=== PATIENT | male | born 1995 | race Two or more races ===

== ENCOUNTER 2020-08-12 15:11 | Emergency (ER) | payer OTHER ==
[~2020-08-12] VITALS: Ht 177.8 cm; Wt 63.0 kg
[2020-08-12] MEDS ORDERED: HALOPERIDOL LACTATE 5MG/ML VIAL IM STA (15:37)
[2020-08-12] MEDS ORDERED: LORAZEPAM 2MG/ML CPJ IM STA (15:37)
[2020-08-12] MEDS ORDERED: SODIUM CHLORIDE 0.9% 1,000 ML IV ONE (15:45)
[2020-08-12 15:58] LABS: BASOPHILS % 0.5 % (0.0-2.0); EOSINOPHILS % 0.8 % (0.0-5.0); HEMATOCRIT. 46.7 % (42.0-52.0); HEMOGLOBIN. 15.6 g/dL (14.0-18.0); LYMPHOCYTES % 19.4 % (20.0-50.0); MEAN CORPUSCULAR HEMOGLOBIN 30.4 pg (28.0-32.0); MEAN PLATELET VOLUME 8.6 fl (7.4-10.4); MONOCYTES % 10.2 % (2.0-8.0); NEUTROPHILS % 69.1 % (40.0-76.0); PLATELET 246 x1000/uL (130-400); RED BLOOD CELL COUNT 5.13 mill/uL (4.7-6.1)
[2020-08-12 16:05] LABS: CHLORIDE 102 mEq/L (98-107)
[2020-08-12 16:09] LABS: ETHANOL BLOOD < 10 mg/dL
[2020-08-12 16:24] LABS: CREATINE KINASE 2105 IU/L (39-308)
[2020-08-12 17:09] LABS: CLARITY URINE CLEAR (CLEAR); COLOR URINE YELLOW (YELLOW); KETONES URINE 3+ (NEGATIVE); LEUKOCYTE ESTERASE URINE 1+ (NEGATIVE); NITRITE URINE NEGATIVE (NEGATIVE); OCCULT BLOOD URINE 2+ (NEGATIVE); PH URINE 5.5 (4.5-8.0); PROTEIN URINE 1+ (NEGATIVE); SPECIFIC GRAVITY URINE 1.032 (1.005-1.030)
[2020-08-12 17:32] LABS: *AMPHETAMINES SCREEN URINE NEGATIVE (NEGATIVE)
[2020-08-12 17:33] LABS: *BARBITURATES SCREEN URINE NEGATIVE (NEGATIVE); *BENZODIAZEPINES SCREEN URINE NEGATIVE (NEGATIVE); *COCAINE SCREEN URINE NEGATIVE (NEGATIVE); CANNABINOID URINE SCREEN PRESUMTIVE POSITIVE (NEGATIVE); METHADONE URINE SCREEN NEGATIVE (NEGATIVE); OPIATES URINE SCREEN NEGATIVE (NEGATIVE); PHENCYCLIDINE URINE SCREEN NEGATIVE (NEGATIVE)
[2020-08-12] MEDS ORDERED: CEFTRIAXONE 1 G PREMIX 50 ML IV ONE (18:00)
[2020-08-12 18:50] VITALS: BP 115/72
== END 2020-08-12 19:05 | disposition home or self-care (01) ==
LOC: ER 15:11
DX: F41.9 Anxiety disorder, unspecified (principal); R45.1 Restlessness and agitation; R25.2 Cramp and spasm; N39.0 Urinary tract infection, site not specified; M62.82 Rhabdomyolysis; F91.8 Other conduct disorders; R03.0 Elevated blood-pressure reading, without diagnosis of hypertension; F12.10 Cannabis abuse, uncomplicated; R00.0 Tachycardia, unspecified; R79.89 Other specified abnormal findings of blood chemistry
CPT/HCPCS: 36415; 71045; 80053; 80305; 80320; 81003; 82550; 83735; 85025; 87086; 96361; 96365; 96372; 99284; J0696; J1630; J2060; J7030; G0480

== ENCOUNTER 2020-11-05 16:08 | Emergency (ER) | payer MEDICAID, OTHER ==
[~2020-11-05] VITALS: Ht 165.1 cm; Wt 65.0 kg
[2020-11-05 16:17] VITALS: BP 115/65
[2020-11-05] MEDS ORDERED: CEFTRIAXONE SODIUM 250 MG/VIAL IM ONE ×2 (17:00)
[2020-11-05] MEDS ORDERED: AZITHROMYCIN 500 MG TABLET PO SCH (17:00)
[2020-11-05 17:30] LABS: CLARITY URINE CLEAR (CLEAR); COLOR URINE YELLOW (YELLOW); KETONES URINE NEGATIVE (NEGATIVE); LEUKOCYTE ESTERASE URINE 2+ (NEGATIVE); NITRITE URINE NEGATIVE (NEGATIVE); OCCULT BLOOD URINE TRACE (NEGATIVE); PH URINE 6.5 (4.5-8.0); PROTEIN URINE NEGATIVE (NEGATIVE); SPECIFIC GRAVITY URINE 1.021 (1.005-1.030); UROBILINOGEN URINE 0.2 E.U./dL (0.2-1.0)
[2020-11-05] MEDS ORDERED: CIPR-263 MT (17:58)
[2020-11-10 04:10] LABS: NEISSERIA GONORRHOEAE NAA Negative (Negative)
== END 2020-11-05 18:07 | disposition home or self-care (01) ==
LOC: ER 16:08
DX: R30.0 Dysuria (principal); F12.90 Cannabis use, unspecified, uncomplicated; Z87.828 Personal history of other (healed) physical injury and trauma
CPT/HCPCS: 81003; 87086; 87491; 87591; 96372; 99284; J0696

== ENCOUNTER 2021-02-23 21:28 | Emergency (ER) | payer MEDICAID ==
[~2021-02-23] VITALS: Ht 177.8 cm; Wt 62.0 kg
[~2021-02-23 21:28] MED LIST: CIPR-263 MT
[2021-02-23] MEDS ORDERED: CEFTRIAXONE SODIUM 500 MG/VIAL IM ONE (23:00)
[2021-02-23] MEDS ORDERED: LIDOCAINE HCL 1% 20ML VIAL (Pyxis) INJ INFIL ONE (23:00)
[2021-02-23 23:13] VITALS: BP 121/65
[2021-02-23 23:13] LABS: CLARITY URINE TURBID (CLEAR); COLOR URINE YELLOW (YELLOW); KETONES URINE NEGATIVE (NEGATIVE); LEUKOCYTE ESTERASE URINE 3+ (NEGATIVE); NITRITE URINE NEGATIVE (NEGATIVE); OCCULT BLOOD URINE NEGATIVE (NEGATIVE); PROTEIN URINE TRACE (NEGATIVE); SPECIFIC GRAVITY URINE 1.024 (1.005-1.030)
[2021-02-23] MEDS ORDERED: CEPH500C2 MT (23:30)
[2021-02-23] MEDS ORDERED: DOXY100C2 MT (23:30)
[2021-02-26 07:09] LABS: NEISSERIA GONORRHOEAE NAA Positive (Negative)
== END 2021-02-24 00:09 | disposition admitted as inpatient to this hospital (09) ==
LOC: ER 21:28
DX: A54.09 Other gonococcal infection of lower genitourinary tract (principal); R11.2 Nausea with vomiting, unspecified; F12.90 Cannabis use, unspecified, uncomplicated
CPT/HCPCS: 81003; 87086; 87491; 87591; 96372; 99283; J0696; J3490

== ENCOUNTER 2021-03-27 08:07 | Emergency (ER) | payer MEDICAID ==
[~2021-03-27] VITALS: Ht 172.7 cm; Wt 61.0 kg
[~2021-03-27 08:07] MED LIST changes: +CEPH500C2 MT; +DOXY100C2 MT
[2021-03-27 08:09] VITALS: BP 113/77
[2021-03-27] MEDS ORDERED: CEFTRIAXONE SODIUM 1 G/VIAL IM ONE (08:30)
[2021-03-27] MEDS ORDERED: LIDOCAINE HCL 1% 20ML VIAL (Pyxis) INJ INFIL ONE (08:30)
[2021-03-27 08:52] LABS: COLOR URINE YELLOW (YELLOW); KETONES URINE NEGATIVE (NEGATIVE); LEUKOCYTE ESTERASE URINE NEGATIVE (NEGATIVE); NITRITE URINE NEGATIVE (NEGATIVE); OCCULT BLOOD URINE NEGATIVE (NEGATIVE); PH URINE 5.5 (4.5-8.0); PROTEIN URINE NEGATIVE (NEGATIVE); SPECIFIC GRAVITY URINE 1.026 (1.005-1.030); UROBILINOGEN URINE 0.2 E.U./dL (0.2-1.0)
[2021-03-27 08:55] LABS: CLARITY URINE CLEAR (CLEAR)
[2021-03-27] MEDS ORDERED: DOXY100C2 MT (09:01)
[2021-03-30 08:10] LABS: NEISSERIA GONORRHOEAE NAA Negative (Negative)
== END 2021-03-27 09:50 | disposition home or self-care (01) ==
LOC: ER 08:07
DX: N34.2 Other urethritis (principal); F12.90 Cannabis use, unspecified, uncomplicated
CPT/HCPCS: 81003; 87086; 87491; 87591; 96372; 99283; J0696; J3490